=== PATIENT | female | born 2000 | race Caucasian/White ===

== ENCOUNTER 2024-01-19 13:02 | Emergency (ER) | payer MEDICAID ==
[~2024-01-19] VITALS: Ht 162.6 cm; Wt 121.0 kg
[2024-01-19 13:13] VITALS: BP 109/61; PULSE 83; TEMP 98.8; O2SAT 99
[2024-01-19] MEDS ORDERED: CIPHCO RIGHT EAR (15:33)
[2024-01-19] MEDS ORDERED: AZIT250T12 MT (15:33)
== END 2024-01-19 16:09 | disposition home or self-care (01) ==
LOC: ER 13:19
DX: H66.91 Otitis media, unspecified, right ear (principal); Z98.890 Other specified postprocedural states
CPT/HCPCS: 99283